=== PATIENT | male | born 1965 | race Two or more races ===

== ENCOUNTER 2017-11-10 14:17 | Inpatient (IN) | payer OTHER ==
[~2017-11-10] VITALS: Ht 180.3 cm; Wt 81.7 kg
[2017-11-10 15:03] LABS: BASOPHIL % 0.7 % (0-2); PLATELET COUNT 240 x10^3mcL (130-400); RED CELL DISTRIBUTION WIDTH 13.7 % (11.5-14.5)
[2017-11-10 15:18] LABS: CALCIUM 8.6 mg/dL (8.5-10.1); CARBON DIOXIDE 27.1 mmol/L (21-32); CHLORIDE SERUM 109 mmol/L (98-107); CREATININE SERUM 0.9 mg/dL (0.7-1.3); GFR1 > 60 mL/min; GLUCOSE SERUM 133 mg/dL (74-106); POTASSIUM SERUM 4.2 mmol/L (3.5-5.1); SODIUM SERUM 143 mmol/L (136-145)
[2017-11-10 17:11] VITALS: BP 130/92
[2017-11-10 17:17] VITALS: Ht 180.3 cm; Wt 81.7 kg
[2017-11-10 17:40] LABS: AMYLASE 53 U/L (25-115); LIPASE 197 IU/L (73-393); PHOSPHOROUS 3.6 mg/dL (2.5-4.9)
[2017-11-10 17:44] LABS: CHOLESTEROL 220 mg/dL (<200); CHOLESTEROL/HDL RATIO 7.1; HDL CHOLESTEROL 31 mg/dL (40-60); TRIGLYCERIDES 521 mg/dL (<150)
[2017-11-10 17:50] LABS: FREE T4 0.8 ng/dL (0.76-1.46); FREE THYROXINE INDEX 1.8 ug/dL (1.4-4.5); T4(THYROXINE) 5.4 ug/dL (4.7-13.3)
[2017-11-10 18:15] LABS: microscopic required? NO
[2017-11-10 18:20] LABS: urine erythrocyte NEGATIVE (NEGATIVE)
[2017-11-10 18:28] LABS: AMPHETAMINE QUAL UR NONE DETECTED (See below)
[2017-11-10 19:11] LABS: T3 TOTAL 0.84 ng/mL
[2017-11-10 20:39] VITALS: BP 133/88
[2017-11-11 04:14] VITALS: BP 145/68
[2017-11-11 05:41] LABS: BASOPHIL % 0.6 % (0-2); PLATELET COUNT 214 x10^3mcL (130-400); RED CELL DISTRIBUTION WIDTH 14.2 % (11.5-14.5)
[2017-11-11 05:53] LABS: CALCIUM 7.7 mg/dL (8.5-10.1); CARBON DIOXIDE 25.4 mmol/L (21-32); CHLORIDE SERUM 109 mmol/L (98-107); CREATININE SERUM 0.7 mg/dL (0.7-1.3); GFR1 > 60 mL/min; GLUCOSE SERUM 130 mg/dL (74-106); MAGNESIUM 1.9 mg/dL (1.8-2.4); PHOSPHOROUS 3.4 mg/dL (2.5-4.9); POTASSIUM SERUM 3.8 mmol/L (3.5-5.1); SODIUM SERUM 141 mmol/L (136-145)
[2017-11-11 10:03] VITALS: BP 146/89
[2017-11-11 13:05] VITALS: BP 147/82
[2017-11-11 18:15] VITALS: BP 159/95
[2017-11-11 21:08] VITALS: BP 149/99
[2017-11-12 04:48] VITALS: BP 119/67
[2017-11-12 06:27] LABS: CARBON DIOXIDE 22.6 mmol/L (21-32); CHLORIDE SERUM 107 mmol/L (98-107); CREATININE SERUM 0.7 mg/dL (0.7-1.3); GFR1 > 60 mL/min; GLUCOSE SERUM 111 mg/dL (74-106); POTASSIUM SERUM 3.9 mmol/L (3.5-5.1); SODIUM SERUM 142 mmol/L (136-145)
[2017-11-12 09:16] VITALS: BP 133/87
[2017-11-12 13:25] VITALS: BP 146/96
[2017-11-12] MEDS ORDERED: ECO81 PO (13:41)
[2017-11-12] MEDS ORDERED: LIPI20 PO (13:41)
[2017-11-12 14:00] VITALS: BP 146/96
== END 2017-11-12 14:39 | disposition home or self-care (01) | DRG 309 ==
LOC: ED 14:17 → DU 16:03
PROVIDERS: Emergency Medicine; Family Medicine
DX: R00.2 Palpitations (principal); E44.0 Moderate protein-calorie malnutrition; K21.9 Gastro-esophageal reflux disease without esophagitis; I10 Essential (primary) hypertension; E78.5 Hyperlipidemia, unspecified; Z87.891 Personal history of nicotine dependence; Z88.8 Allergy status to other drugs, medicaments and biological substances; E11.9 Type 2 diabetes mellitus without complications; Z68.25 Body mass index [BMI] 25.0-25.9, adult
CPT/HCPCS: 83880; 84439; J3010; J7030; Q0092

== ENCOUNTER → 2017-12-03 | Outpatient (CLI) | payer OTHER ==
[~2017-12-03] MED LIST: ECO81 PO; LIPI20 PO
[2017-12-03 14:53] LABS: microscopic required? NO
[2017-12-03 15:00] LABS: UA SPECIFIC GRAVITY 1.025 (1.005-1.035); urine erythrocyte NEGATIVE (NEGATIVE)
[2017-12-03 15:09] LABS: BASOPHIL % 0.4 % (0-2); PLATELET COUNT 221 x10^3mcL (130-400); RED CELL DISTRIBUTION WIDTH 13.1 % (11.5-14.5)
[2017-12-03 15:16] LABS: ALBUMIN 3.8 g/dL (3.4-5.0); ALKALINE PHOSPHATASE 172 U/L (46-116); ALT/SGPT 33 U/L (16-63); AST/SGOT 12 U/L (15-37); BILIRUBIN TOTAL 0.3 mg/dL (0.20-1.00); CALCIUM 9.1 mg/dL (8.5-10.1); CARBON DIOXIDE 28.1 mmol/L (21-32); CHLORIDE SERUM 107 mmol/L (98-107); CREATININE SERUM 0.9 mg/dL (0.7-1.3); GFR1 > 60 mL/min; GLUCOSE SERUM 115 mg/dL (74-106); HDL CHOLESTEROL 41 mg/dL (40-60); POTASSIUM SERUM 3.8 mmol/L (3.5-5.1); SODIUM SERUM 142 mmol/L (136-145); TOTAL PROTEIN, SERUM 7.8 g/dL (6.4-8.2)
[2017-12-03 15:24] LABS: CHOLESTEROL 220 mg/dL (<200); CHOLESTEROL/HDL RATIO 5.4; TRIGLYCERIDES 286 mg/dL (<150)
== END | disposition home or self-care (01) ==
LOC: LB 14:14
DX: Z00.00 Encounter for general adult medical examination without abnormal findings (principal)
CPT/HCPCS: 84153

== ENCOUNTER 2018-01-29 18:25 | Inpatient (IN) | payer OTHER ==
[~2018-01-29] VITALS: Ht 180.3 cm; Wt 103.1 kg
[2018-01-29 18:42] VITALS: Ht 180.3 cm; Wt 103.1 kg
[2018-01-29 19:41] LABS: BASOPHIL % 0.2 % (0-2); PLATELET COUNT 212 x10^3mcL (130-400)
[2018-01-29 19:50] LABS: CALCIUM 8.2 mg/dL (8.5-10.1); CARBON DIOXIDE 25.4 mmol/L (21-32); CHLORIDE SERUM 106 mmol/L (98-107); CREATININE SERUM 0.9 mg/dL (0.7-1.3); GFR1 > 60 mL/min; GLUCOSE SERUM 150 mg/dL (74-106); POTASSIUM SERUM 3.7 mmol/L (3.5-5.1); SODIUM SERUM 141 mmol/L (136-145)
[2018-01-29 19:57] LABS: ALBUMIN 3.4 g/dL (3.4-5.0); ALKALINE PHOSPHATASE 163 U/L (46-116); AMYLASE 43 U/L (25-115); BILIRUBIN TOTAL 0.48 mg/dL (0.20-1.00); LIPASE 90 IU/L (73-393)
[2018-01-29 20:22] LABS: ALT/SGPT 8 U/L (16-63); AST/SGOT 16 U/L (15-37)
[2018-01-29 22:08] LABS: PHOSPHOROUS 3.6 mg/dL (2.5-4.9)
[2018-01-29 22:16] LABS: T3 TOTAL 0.93 ng/mL
[2018-01-29 22:19] VITALS: BP 123/82
[2018-01-29 22:41] LABS: FREE T4 0.75 ng/dL (0.76-1.46)
[2018-01-29 22:50] LABS: FREE THYROXINE INDEX 1.4 ug/dL (1.4-4.5); T4(THYROXINE) 4.1 ug/dL (4.7-13.3)
[2018-01-30 05:52] VITALS: BP 98/57
[2018-01-30 06:01] LABS: BASOPHIL % 0.4 % (0-2); PLATELET COUNT 187 x10^3mcL (130-400); RED CELL DISTRIBUTION WIDTH 14.1 % (11.5-14.5)
[2018-01-30 06:34] LABS: CALCIUM 7.9 mg/dL (8.5-10.1); CARBON DIOXIDE 24.7 mmol/L (21-32); CHLORIDE SERUM 113 mmol/L (98-107); CREATININE SERUM 0.9 mg/dL (0.7-1.3); GFR1 > 60 mL/min; GLUCOSE SERUM 127 mg/dL (74-106); MAGNESIUM 1.8 mg/dL (1.8-2.4); POTASSIUM SERUM 3.7 mmol/L (3.5-5.1); SODIUM SERUM 148 mmol/L (136-145)
[2018-01-30 08:57] VITALS: BP 101/62
[2018-01-30 17:13] VITALS: BP 122/84
[2018-01-30 19:43] LABS: microscopic required? NO
[2018-01-30 20:04] LABS: UA SPECIFIC GRAVITY 1.015 (1.005-1.035); urine erythrocyte NEGATIVE (NEGATIVE)
[2018-01-30 20:12] LABS: AMPHETAMINE QUAL UR NONE DETECTED (See below)
[2018-01-30 21:11] VITALS: BP 144/90
[2018-01-31 05:40] VITALS: BP 118/79
[2018-01-31 06:22] LABS: BASOPHIL % 0.3 % (0-2); PLATELET COUNT 195 x10^3mcL (130-400)
[2018-01-31 06:33] LABS: CALCIUM 8.3 mg/dL (8.5-10.1); CHLORIDE SERUM 107 mmol/L (98-107); CREATININE SERUM 0.9 mg/dL (0.7-1.3); GFR1 > 60 mL/min; GLUCOSE SERUM 119 mg/dL (74-106); MAGNESIUM 1.9 mg/dL (1.8-2.4); PHOSPHOROUS 4.1 mg/dL (2.5-4.9); POTASSIUM SERUM 3.7 mmol/L (3.5-5.1); SODIUM SERUM 139 mmol/L (136-145)
[2018-01-31 08:58] VITALS: BP 143/95
[2018-01-31 18:01] VITALS: BP 130/79
[2018-01-31 21:01] VITALS: BP 121/68
[2018-02-01 05:56] VITALS: BP 114/80
[2018-02-01 06:27] LABS: CALCIUM 8.4 mg/dL (8.5-10.1); CARBON DIOXIDE 26.1 mmol/L (21-32); CHLORIDE SERUM 111 mmol/L (98-107); CREATININE SERUM 0.9 mg/dL (0.7-1.3); GFR1 > 60 mL/min; GLUCOSE SERUM 128 mg/dL (74-106); PHOSPHOROUS 4.4 mg/dL (2.5-4.9); POTASSIUM SERUM 3.8 mmol/L (3.5-5.1); SODIUM SERUM 146 mmol/L (136-145)
[2018-02-01 06:31] LABS: BASOPHIL % 0.3 % (0-2); PLATELET COUNT 205 x10^3mcL (130-400); RED CELL DISTRIBUTION WIDTH 13.8 % (11.5-14.5)
[2018-02-01 09:23] VITALS: BP 122/70
== END 2018-02-01 14:30 | disposition home or self-care (01) | DRG 390 ==
LOC: ED 18:25 → MU 21:25
PROVIDERS: Emergency Medicine; Internal Medicine
PROC: 3E0234Z Introduction of Serum, Toxoid and Vaccine into Muscle, Percutaneous Approach (ICD-10-PCS; principal; 2018-01-29)
DX: K56.600 Partial intestinal obstruction, unspecified as to cause (principal); E11.65 Type 2 diabetes mellitus with hyperglycemia; I10 Essential (primary) hypertension; E78.5 Hyperlipidemia, unspecified; E78.1 Pure hyperglyceridemia; E03.9 Hypothyroidism, unspecified; Z68.30 Body mass index [BMI] 30.0-30.9, adult; Z91.040 Latex allergy status; Z79.82 Long term (current) use of aspirin; Z79.899 Other long term (current) drug therapy; Z23 Encounter for immunization
CPT/HCPCS: 83880; 84439; 90658; A9698; J1885; J7030; J7070; Q0092; Q9967

== ENCOUNTER → 2018-03-10 | Outpatient (CLI) | payer OTHER ==
[2018-03-10 14:48] LABS: ALBUMIN 3.5 g/dL (3.4-5.0); BILIRUBIN DIRECT 0.1 mg/dL (0.0-0.2); BILIRUBIN TOTAL 0.3 mg/dL (0.20-1.00); CHOLESTEROL/HDL RATIO 4.9; TOTAL PROTEIN, SERUM 7.2 g/dL (6.4-8.2)
== END | disposition home or self-care (01) ==
LOC: LB 14:01
DX: I10 Essential (primary) hypertension (principal)

== ENCOUNTER 2018-11-21 20:16 | Emergency (ER) | payer OTHER ==
[~2018-11-21] VITALS: Ht 180.3 cm; Wt 98.0 kg
[2018-11-21 20:29] VITALS: Ht 180.3 cm; Wt 98.0 kg
[2018-11-21 22:58] VITALS: BP 123/68
== END 2018-11-21 22:58 | disposition home or self-care (01) ==
LOC: ED 20:16
DX: J06.9 Acute upper respiratory infection, unspecified (principal); I10 Essential (primary) hypertension; Z91.040 Latex allergy status

== ENCOUNTER → 2019-02-18 | Outpatient (CLI) | payer OTHER ==
[2019-02-18 14:15] LABS: BASOPHIL % 1.2 % (0-2); PLATELET COUNT 228 x10^3mcL (130-400)
[2019-02-18 14:35] LABS: ALBUMIN 3.8 g/dL (3.4-5.0); ALKALINE PHOSPHATASE 166 U/L (46-116); ALT/SGPT 19 U/L (16-63); AST/SGOT 9 U/L (15-37); CALCIUM 8.8 mg/dL (8.5-10.1); CARBON DIOXIDE 24.9 mmol/L (21-32); CHLORIDE SERUM 108 mmol/L (98-107); CHOLESTEROL 194 mg/dL (<200); CHOLESTEROL/HDL RATIO 5.7; CREATININE SERUM 0.8 mg/dL (0.7-1.3); GFR1 > 60 mL/min; GLUCOSE SERUM 94 mg/dL (74-106); HDL CHOLESTEROL 34 mg/dL (40-60); POTASSIUM SERUM 4.2 mmol/L (3.5-5.1); SODIUM SERUM 143 mmol/L (136-145); TOTAL PROTEIN, SERUM 7.5 g/dL (6.4-8.2); TRIGLYCERIDES 342 mg/dL (<150)
[2019-02-18 14:38] LABS: RED CELL DISTRIBUTION WIDTH 14.8 % (11.5-14.5)
== END | disposition home or self-care (01) ==
LOC: LB 13:31
DX: E11.9 Type 2 diabetes mellitus without complications (principal)

== ENCOUNTER 2019-05-04 14:22 | Emergency (ER) | payer OTHER ==
[~2019-05-04] VITALS: Ht 180.3 cm; Wt 100.7 kg
[2019-05-04 14:28] VITALS: Ht 180.3 cm; Wt 100.7 kg
[2019-05-04 17:00] VITALS: BP 159/99
== END 2019-05-04 17:00 | disposition home or self-care (01) ==
LOC: ED 14:22
DX: M54.5 Low back pain (principal)
CPT/HCPCS: J1885

== ENCOUNTER 2019-10-23 19:35 | Inpatient (IN) | payer OTHER ==
[~2019-10-23] VITALS: Ht 180.3 cm; Wt 101.6 kg
[2019-10-23 19:42] VITALS: Ht 180.3 cm; Wt 101.6 kg
--- NOTE | 2019-10-23 19:54 | NUR ---
PATIENT SEEN IN NO APPARENT DISTRESS. COMPLAINT OF GENERAL ABDOMINAL PAIN 10/09. REPORTS ABDOMINAL SURGERY IN THE PAST.PATIENT IS WAITING FOR MD EVALUATION.
--- NOTE | 2019-10-23 20:10 | NUR ---
PATIENT WAS SEEN BY
[2019-10-23 20:30] LABS: BASOPHIL % 0.4 % (0-2); PLATELET COUNT 249 x10^3mcL (130-400); RED CELL DISTRIBUTION WIDTH 14.7 % (11.5-14.5)
[2019-10-23 20:53] LABS: CALCIUM 8.6 mg/dL (8.5-10.1); CARBON DIOXIDE 27.3 mmol/L (21-32); CHLORIDE SERUM 102 mmol/L (98-107); GFR1 > 60 mL/min; GLUCOSE SERUM 127 mg/dL (74-106); POTASSIUM SERUM 4.4 mmol/L (3.5-5.1); SODIUM SERUM 139 mmol/L (136-145)
--- NOTE | 2019-10-23 20:53 | NUR ---
PATIENT MEDICATED WITH ZOFRAN AND MORPHINE. SALINE FLUIS BOLUS IS INFUSING
[2019-10-23 20:58] LABS: ALBUMIN 3.7 g/dL (3.4-5.0); ALKALINE PHOSPHATASE 178 U/L (46-116); ALT/SGPT 32 U/L (16-63); AST/SGOT 12 U/L (15-37); BILIRUBIN TOTAL 0.47 mg/dL (0.20-1.00); LIPASE 60 IU/L (73-393); TOTAL PROTEIN, SERUM 7.4 g/dL (6.4-8.2)
--- NOTE | 2019-10-23 21:09 | NUR ---
PATIENT WENT TO HAVE CT SCAN DONE.
--- NOTE | 2019-10-23 22:17 | NUR ---
PATIENT IS ADMITTED AND WAITING FOR A BED.
[2019-10-23] MEDS ORDERED: FORTAMET1000 MG PO (22:19)
--- NOTE | 2019-10-23 22:53 | NUR ---
REPORT WAS GIVEN TO BRUNO. PATIENT HAS NOT VOID YET TO GIVE URINE SPECIMEN. PATIENT TRANSPORED TO ROOM 232A
[2019-10-23 23:04] LABS: MAGNESIUM 1.8 mg/dL (1.8-2.4); PHOSPHOROUS 3.8 mg/dL (2.5-4.9)
--- NOTE | 2019-10-23 23:05 | NUR ---
RECEIVED PT VIA [employer]@ FROM E/D, ACCOMPANIED BY 2 ED STAFF. PT A/A/O X 4, CALM, COOPERATIVE TO CARE; WEARS GLASSES (W/ PT). AMBULATORY, NO GAIT OR BALANCE IMPAIRMENT NOTED WHEN WALKING FROM GURNEY TO BED. DENIES CHEST PAIN OR DISCOMFORT AT THIS TIME. NO ACUTE RESPIRATORY DISTRESS NOTED. ABD SOFT, DISTENDED, NORMOACTIVE BOWEL SOUNDS AND TYMPANY UPON PERCUSSION X 4 QUADS, LAST BM 10/23/2019, FORMED; WEARS PARTIAL UPPER DENTURES. POOR PO INTAKE > 3 DAYS. IV SITE RAC 20G, CDI. ORIENTED PT TO ROOM, BED CONTROLS, CALL LIGHT SYSTEM. SIDE RAILS UP X 2, BED IN LOW POSITION. WILL ENDORSE TO UMER AZUL.
--- NOTE | 2019-10-23 23:13 | NUR ---
PATIENT TRANSPORTED TO ROOM 232A
[2019-10-23 23:36] VITALS: BP 138/92
[2019-10-24 05:03] VITALS: BP 148/87
--- NOTE | 2019-10-24 06:17 | NUR ---
PATIENT HAD A RESTFUL AND QUIET NIGHT STATED. PATIENT STATE ABDOMINAL PAIN IS BEARBLE AT 4/10, DIDNT REQUEST FOR PAIN MEDICATION WHEN IT WAS OFFERED. MILD GENERALIZED WEAKNESS, NEEDS ANTICIPATED. IV SITE TO RAC PATENT AND INTACT RECEIVING NS AT 100 ML/HR. VOIDED PER URINAL, UA COLLECTED AND SENT TO LAB. SAFETY/FALL PRECAUTIONS MAINTAINED. WILL ENDORSE CONTINUITY OF CARE TO INCOMING NURSE.
--- NOTE | 2019-10-24 07:27 | NUR ---
BEDSIDE HANDS OFF REPORT PERFORMED WITH INCOMING NURSE BIRD.
[2019-10-24 08:20] VITALS: BP 116/68
[2019-10-24 08:32] LABS: microscopic required? NO
[2019-10-24 08:40] LABS: urine erythrocyte NEGATIVE (NEGATIVE)
--- NOTE | 2019-10-24 10:21 | NUR ---
RECIEVED REPORT FROM DIRECTOR PEOPLESOFT RN. PATIENT SLEEPING COMFORTABLY IN BED. IV FLUIDS INFUSING. CALL LIGHT AND BEDSIDE TABLE WITHIN REACH. WILL CONTINUE TO MONITOR
[2019-10-24 10:43] LABS: AMPHETAMINE QUAL UR NONE DETECTED (See below)
[2019-10-24 12:13] VITALS: BP 135/85
--- NOTE | 2019-10-24 13:48 | NUR ---
Patient A&Ox4, room air, vitals stable, accuchecks ac/hs. Small bowel follow through x-ray in progress. patient remains NPO. No complaints of pain or nausea. IVF continues to infuse. no other concerns at this time. call light and bedside table within reach. needs attended.
[2019-10-24 16:23] VITALS: BP 136/81
--- NOTE | 2019-10-24 17:14 | NUR ---
PATIENT A&OX4, ROOM AIR, VITALS STABLE, VOIDING IN BATHROOM, AMBULATORY INDEPENDENTLY WITH STEADY GAIT. NPO FOR SBO. SMALL BOWEL FOLLOW THROUGH XRAY COMPLETED. PATIENT REMAINS ON IV FLUIDS. NO COMPLAINTS OF PAIN. BOWEL SOUNDS REMAIN HYPOACTIVE. PATIENT REPORTS MINIMAL GAS. ABDOMEN IS STILL DISTENDED. NO CONCERNS AT THIS TIME. CALL LIGHT AND BEDSIDE TABLE WITHIN REACH. NEEDS ATTENDED.
--- NOTE | 2019-10-24 19:05 | NUR ---
CARE ASSUMED FROM OUTGOING RN. PT RESTING COMFORTABLY IN BED. NO ACUTE DISTRESS NOTED. EVEN AND UNLABORED RESPIRATIONS ON RA. MEDSURG PT. IV PATENT AND INTACT RUNNING IVF PER EMAR. NO C/O N/V, PAIN OR SOB AT THIS TIME. BED IN LOWEST POSITION. SIDE RAILS UPX2. CALL LIGHT WITHIN REACH. WILL CONTINUE TO MONITOR.
[2019-10-24 20:22] VITALS: BP 141/92
--- NOTE | 2019-10-25 01:03 | NUR ---
PT RESTING COMFORTABLY IN BED WITH EYES CLOSED. NO ACUTE DISTRESS NOTED. EVEN AND UNLABORED RESPIRATIONS ON RA. IVF RUNNING PER EMAR. BED IN LOWEST POSITION. SIDE RAILS UPX2. CALL LIGHT WITHIN REACH. WILL CONTINUE TO MONITOR.
[2019-10-25 04:25] VITALS: BP 134/81
--- NOTE | 2019-10-25 06:30 | NUR ---
PT RESTED COMFORTABLY IN INTERVALS THROUGHOUT THE SHIFT. ALL NEEDS TENDED TO AND MET. ALL SCHEDULED MEDICATIONS GIVEN. EVEN AND UNLABORED RESPIRATIONS ON RA. NO C/O PAIN OR SOB. BED IN LOWEST POSITION. SIDE RAILS UPX2. CALL LIGHT WITHIN REACH. WILL ENDORSE TO ONCOMING SHIFT
[2019-10-25 06:56] LABS: CALCIUM 8.1 mg/dL (8.5-10.1); CARBON DIOXIDE 24.9 mmol/L (21-32); CHLORIDE SERUM 107 mmol/L (98-107); CREATININE SERUM 0.7 mg/dL (0.7-1.3); GFR1 > 60 mL/min; GLUCOSE SERUM 92 mg/dL (74-106); MAGNESIUM 1.8 mg/dL (1.8-2.4); PHOSPHOROUS 3.5 mg/dL (2.5-4.9); POTASSIUM SERUM 3.8 mmol/L (3.5-5.1); SODIUM SERUM 143 mmol/L (136-145)
--- NOTE | 2019-10-25 07:41 | NUR ---
RECEIVED SLEEPING BUT AROUSABLE. IN NO ACUTE RESP. DISTRESS. NO C/O PAIN OR DISCOMFORT AT THIS TIME. VS WNL. IVF INFUSING WELL AND SITE CLEAR. CALL LIGHT WITHIN REACH. WILL CONTINUE WITH PLAN OF CARE.
[2019-10-25 08:00] LABS: BASOPHIL % 0.4 % (0-2); PLATELET COUNT 198 x10^3mcL (130-400); RED CELL DISTRIBUTION WIDTH 14.2 % (11.5-14.5)
[2019-10-25 08:20] VITALS: BP 141/93
[2019-10-25] MEDS ORDERED: MIRALAX17 GM PO (09:49)
[2019-10-25 13:02] VITALS: BP 141/93
[2019-10-25 13:14] VITALS: BP 145/91
--- NOTE | 2019-10-25 15:23 | NUR ---
PT TOLERATED WELL WITH MEALS. NO N/V NOR ABD. DISCOMFORT. WILL BE DC'D HOME THIS AFTERNOON. DC INSTRUCTIONS REVIEWED WITH PT AND PT VERBALIZED UNDERSTANDING.HL REMOVED AND SITE CLEAR. VS STABLE. PT IS WAITING FOR RIDE HOME.
== END 2019-10-25 16:06 | disposition home or self-care (01) | DRG 390 ==
LOC: ED 19:35 → MU 21:59
PROVIDERS: Emergency Medicine; ADMIT Internal Medicine; ATTEND Internal Medicine
DX: K56.609 Unspecified intestinal obstruction, unspecified as to partial versus complete obstruction (principal); I10 Essential (primary) hypertension; E78.5 Hyperlipidemia, unspecified; E11.65 Type 2 diabetes mellitus with hyperglycemia; Z91.040 Latex allergy status; Z79.84 Long term (current) use of oral hypoglycemic drugs; Z79.899 Other long term (current) drug therapy
CPT/HCPCS: 82962; G0378; J2270; J2405; J7030; Q9967